=== PATIENT | female | born 1985 | race Caucasian/White ===

== ENCOUNTER → 2018-04-05 | Outpatient (CLI) | payer OTHER | LOC: FIMAGING 14:10 | PROVIDERS: ATTEND Advanced Practice Midwife | DX: O09.512 Supervision of elderly primigravida, second trimester (principal); O34.42 Maternal care for other abnormalities of cervix, second trimester; Z3A.19 19 weeks gestation of pregnancy ==

== ENCOUNTER → 2018-04-12 | Outpatient (CLI) | payer OTHER | LOC: FIMAGING 10:25 | PROVIDERS: ATTEND Advanced Practice Midwife | DX: O09.512 Supervision of elderly primigravida, second trimester (principal); Z3A.20 20 weeks gestation of pregnancy ==

== ENCOUNTER 2018-09-05 22:15 | Inpatient (IN) | payer OTHER ==
--- NOTE | 2018-09-05 22:54 | PDGENHP ---
History and Physical History and Physical: Care: [facility] HPI: Elayne Olivarez is a [id number] with IUP@ 41-0 weeks that presents to L&D with complaints of contractions since 1445. she denies any LOF, VB. She reports losing mucous plug today. She reports +FM. She states that pain with contractions has been increasing since 1900. EDC: 08/29/18 which is based on LMP which is known and consistent with Ultrasound at 9 weeks. Her is complicated by: AMA, Rh negative Review of Systems: Constitutional: Denies any fever, chills, or fatigue HEENT: denies any visual changes, difficulty swallowing, hearing loss Cardiovascular: Denies any chest pain, palpitations, leg swelling Respiratory: denies any cough, wheezing, or shortness of breathe GI: Denies any nausea, vomiting, diarrhea, constipation : denies any dysuria, urgency, frequency, vaginal bleeding Musculoskeletal: denies any muscle or bone pain Skin: denies any rashes Neuro: denies any headache, seizures, lightheadedness, dizziness, or loss of consciousness Psychiatric: denies any depression, anxiety, or SI/HI thoughts HISTORY: Previous OB history: G1 Past medical history: HSV type 1 Past surgical history: jaw surgery 1999 Social: Denies any alcohol, tobacco, or drug use. - joy ; lives in [place] Family history: Not relevant Medications: PNV Allergies (list reaction): NKDA LABS: Rh: A Negative ABS: Neg Rubella: Immune HbsAg: NR HIV: NR VDRL: NR 1hr: 101 GC: Neg Chlamydia: Neg Pap: Normal GBS: negative PHYSICAL EXAM: Constitutional: WN, A&Ox3 HEENT: normocephalic atraumatic, supple Skin: Warm, dry, intact Heart: RRR, no murmur Chest: CTA-B Abdomen: Soft, nontender, gravid SVE: 5/70/-1 Extremities: no edema, negative homans sign Neuro: grossly normal Psych: normal affect assessment: FHT baseline 140 +accels, no decels, moderate variability Contractions: toco q 6-7 Assessment: * 33yo with IUP @ 41-0wks * GBS Negative * Cat 1 FHR tracing * Rh Negative Plan: * Admit to L&D * hydrotherapy/pain management PRN * expectant management * reassess 2-4hr/PRN * anticipate Today's visit was approximately 30 min, of which >50% of visit 20 min, was spent face to face with pt on direct counseling/coordination of care.
[2018-09-05] MEDS ORDERED: AMMONIA AROMATIC 1 EACH AMP IH PRN (23:07)
[2018-09-05] MEDS ORDERED: OXYTOCIN/RINGERS LACTATE 1,000 ML IV PRN (23:07)
[2018-09-05] MEDS ORDERED: TERBUTALINE SULFATE 1 MG/ML VIAL IV PRN (23:07)
[2018-09-05] MEDS ORDERED: OLIVE OIL 118 ML BTL MISC PRN (23:07)
[2018-09-05] MEDS ORDERED: MISOPROSTOL 200 MCG TAB PO PRN (23:07)
[2018-09-05] MEDS ORDERED: LR 1,000 ML IV PRN (23:07)
[2018-09-05] MEDS ORDERED: EPSOM SALT 454 GM TP PRN (23:07)
[2018-09-05] MEDS ORDERED: LIDOCAINE 1% 300 MG/30 ML SDV SC PRN (23:07)
[2018-09-05] MEDS ORDERED: IBUPROFEN 600 MG TAB PO PRN (23:07)
[2018-09-05] MEDS ORDERED: AMMONIA AROMATIC 1 EACH AMP IH ONE (23:18)
[2018-09-05] MEDS ORDERED: LIDOCAINE 1% 300 MG/30 ML SDV ONE (23:18)
[2018-09-05] MEDS ORDERED: OLIVE OIL 118 ML BTL MISC ONE (23:18)
[2018-09-05] MEDS ORDERED: OXYTOCIN 10 UNIT/ML VIAL ONE (23:18)
[2018-09-05] MEDS ORDERED: TERBUTALINE SULFATE 1 MG/ML VIAL ONE (23:18)
[2018-09-05] MEDS ORDERED: MISOPROSTOL 200 MCG TAB ONE (23:19)
[2018-09-06] MEDS ORDERED: fentaNYL 2MCG/ML/BUP 0.1% RTU 100 ML BAG EP ONE (01:30)
[2018-09-06] MEDS ORDERED: BUPIVACAINE 0.25% 10 ML SDV ONE ×3 (01:31→02:24)
[2018-09-06 01:32] LABS: PLATELET COUNT 116 10^3/uL (150-400)
[2018-09-06] MEDS ORDERED: NALOXONE HCL 0.4 MG/ML INJ IVP PRN (02:02)
[2018-09-06] MEDS ORDERED: ONDANSETRON 4 MG/2 ML VIAL IVP PRN (02:02)
[2018-09-06] MEDS ORDERED: PHENYLEPHRINE HCL 100 MCG/ML SYR IVP PRN (02:02)
[2018-09-06] MEDS ORDERED: METOCLOPRAMIDE 10 MG/2 ML VIAL IVP PRN (02:02)
--- NOTE | 2018-09-06 02:04 | PREANESOB ---
Obstetric Pre-Anesthesia Info - General Info Proposed Procedure: SHELBY : 1 Para: 0 ANDREZ: 08/29/18 Gestational Age: 41 week(s) and 0 day(s) - Info Status: Full Term Monitors: External FHR Pattern: Reassuring - Labor Status Magnesium Sulfate in Use: No Indications for Labor Analgesia: Pain Control Labor Epidural: Proposed Anesthesia Allergies/Adverse Reactions: Allergy/AdvReac Type Severity Reaction Status Date / Time No Known Allergies Allergy Unverified 09/05/18 22:39 Visit Medications: Generic Name Dose Route Start Last Admin Trade Name Freq PRN Reason Stop Dose Admin Ammonia (Aromatic Spirit) 1 each 09/05/18 23:07 Ammonia Aromatic IH 09/15/18 23:06 ONCE PRN Fainting Calcium Carbonate 500 mg 09/05/18 23:35 Tums PO 03/04/19 23:34 TID PRN Indigestion Lactated Ringer's 1,000 mls @ 0 mls/hr 09/05/18 23:07 09/06/18 01:56 Lr IV 09/06/18 23:06 1,000 mls PRN PRN Administration SEE PROTOCOL CONDITIONS Protocol Per Protocol Oxytocin/Lactated Ringer's 1,000 mls @ 999 mls/hr 09/05/18 23:07 Pitocin 20 Units/Lr (Premix) IV PRN PRN Post bleeding Ibuprofen 600 mg 09/05/18 23:07 Motrin PO ONCE PRN post , pain Lidocaine HCl 300 mg 09/05/18 23:07 Lidocaine Hcl 1% SC 03/04/19 23:06 ONCE PRN episiotomy Magnesium Sulfate 454 gm 09/05/18 23:07 Epsom Salt TP 03/04/19 23:06 Q1H PRN perineal discomfort Misoprostol 800 - 1,000 mcg 09/05/18 23:07 Cytotec PO 03/04/19 23:06 ONCE PRN Vaginal Atony/Bleeding Draper Oil 118 ml 09/05/18 23:07 Sweet Oil MISC 03/04/19 23:06 ONCE PRN perineal massage Terbutaline Sulfate 0.25 mg 09/05/18 23:07 Brethine IV 03/04/19 23:06 ONCE PRN Tachysystole Discontinued Medications Generic Name Dose Route Start Last Admin Trade Name Freq PRN Reason Stop Dose Admin Ammonia (Aromatic Spirit) Confirm 09/05/18 23:18 Ammonia Aromatic Administered 09/05/18 23:19 Dose 1 each IH .STK-MED ONE Bupivacaine HCl Confirm 09/06/18 01:31 Sensorcaine 0.25% Sdv Administered 09/06/18 01:32 Dose 10 ml .ROUTE .STK-MED ONE Fentanyl/Bupivacaine HCl Confirm 09/06/18 01:30 Fentanyl/Bupivacaine/Ns 2 Mcg/Ml 0.1% (Premix Administered 09/06/18 01:31 Dose 100 ml EP .STK-MED ONE Lidocaine HCl Confirm 09/05/18 23:18 Lidocaine Hcl 1% Administered 09/05/18 23:19 Dose 300 mg .ROUTE .STK-MED ONE Misoprostol Confirm 09/05/18 23:19 Cytotec Administered 09/05/18 23:20 Dose 1,000 mcg .ROUTE .STK-MED ONE Draper Oil Confirm 09/05/18 23:18 Sweet Oil Administered 09/05/18 23:19 Dose 118 ml MISC .STK-MED ONE Oxytocin Confirm 09/05/18 23:18 Pitocin Administered 09/05/18 23:19 Dose 40 unit .ROUTE .STK-MED ONE Terbutaline Sulfate Confirm 09/05/18 23:18 Brethine Administered 09/05/18 23:19 Dose 1 mg .ROUTE .STK-MED ONE - Anesthesia History Response to Local Anesthetics: Not Applicable Anesthesia & Operative History: No Prior Problems Family Anesthesia History: Not Applicable - Vital Signs Height/Weight (Nursing): Height 170.18 cm Weight 66.678 kg - Focused Exam Neck exam: FROM Mallampati Score: Class 1 Mouth exam: normal dental/mouth exam Pulmonary: no respiratory distress Cardiovascular: regular rate and rhythym Labs: 09/06/18 01:15 - Plan Consent Signed and on Chart: Yes Patient/Guardian Understands and Agrees to Plan: Yes Urgent/Emergent Case: Sheila jolley completed preop but documented later for safe timely pt care
[2018-09-06] MEDS ORDERED: fentaNYL 100 MCG/2 ML INJ ONE ×2 (02:05→02:25)
--- NOTE | 2018-09-06 02:09 | POSTANESTH ---
Post Anesthetic Evaluation Cardiovascular Status: Normal, Stable Respiratory Status: Normal, Stable Level of Consciousness/Mental Status: Can Participate in Eval Pain Control: Adequate, Prn Tx Ordered Nausea/Vomiting Control: Adequate, Prn Tx Ordered Complications Possibly Related to Anesthesia: None Noted
[2018-09-06] MEDS ORDERED: LR 500 ML IV SCH (02:30)
[2018-09-06] MEDS ORDERED: fentaNYL 2MCG/ML/BUP 0.1% RTU 100 ML EP SCH (02:30)
[2018-09-06] MEDS: CALCIUM CARBONATE 500 MG CHEWABLE TAB PO PRN ×2 (03:18→07:12)
--- NOTE | 2018-09-06 04:14 | OBPROG ---
Labor Progress Note Assessment/Plan: Assessment: 33yo with IUP@ 41-0wks Active labor GBS Negative SHELBY in place cat 1 FHR tracing Plan: expectant management if no cervical change in 2 hours will AROM at that time reassess 2hr/PRN anticipate 09/06/18 04:11 Objective: 09/06/18 01:15 Patient ABO/Rh A NEGATIVE 09/06/18 01:15 - SVE Dilation (cm): 8 Effacement (%): 80 Station: -1 Membranes: Intact - Contraction Pattern Assessment Current Contraction Pattern: Regular - FHR Assessment Vilchis FHR (bpm): 135 FHR Pattern Variability: Moderate FHR Category: 1 Oxytocin Orders Assessment - Pre-Induction/Augmentation Assessment Gestational Age: 41 week(s) and 0 day(s) ICD10 Worksheet Patient Problems: Problems Problem Status Onset Normal labor and delivery Acute - ICD10 Problem Qualifiers (1) Normal labor and delivery
[2018-09-06] MEDS ORDERED: FAMOTIDINE 20 MG/NACL 50 ML IV ONE (08:00)
--- NOTE | 2018-09-06 08:32 | OBPROG ---
Labor Progress Note Assessment/Plan: Assessment: 33 y/o P0 at 41.1 weeks ega Comfortable with epidural Complete and pushing Cntx q3 min Cat 1 EFM Plan: Anticipate 09/06/18 08:31 09/06/18 08:32 Subjective/Intrapartum Course: 09/06/18 08:30 Complete and pushing well with coaching -good descent Objective: 09/06/18 01:15 Patient ABO/Rh A NEGATIVE 09/06/18 01:15 - SVE Dilation (cm): 10 Effacement (%): 100 Station: +2 Membranes: Intact Amniotic Fluid Color: Meconium Stained Dilation Complete Date: 09/06/18 Dilation Complete Time: 07:25 - Contraction Pattern Assessment Current Contraction Pattern: Regular Oxytocin Orders Assessment - Pre-Induction/Augmentation Assessment Gestational Age: 41 week(s) and 0 day(s) ICD10 Worksheet Patient Problems: Problems Problem Status Onset Normal labor and delivery Acute
[2018-09-06] MEDS ORDERED: HYDROCODONE/APAP 5/325 TAB PO PRN (11:27)
[2018-09-06] MEDS ORDERED: HYDROCORTISONE 0.5% CREAM TP PRN (11:27)
[2018-09-06] MEDS ORDERED: SIMETHICONE 80 MG TAB CHEW PO PRN (11:27)
--- NOTE | 2018-09-06 11:27 | OBDEL ---
Info Type: Vaginal Presentation at Delivery: Vertex L&D Analgesia/Anesthesia Type: Epidural GBS+: No Intrapartum Medications: Generic Name Dose Route Start Last Admin Trade Name Freq PRN Reason Stop Dose Admin Calcium Carbonate 500 mg 09/05/18 23:35 09/06/18 07:12 Tums PO 03/04/19 23:34 500 mg TID PRN Administration Indigestion Lactated Ringer's 1,000 mls @ 0 mls/hr 09/05/18 23:07 09/06/18 01:56 Lr IV 09/06/18 23:06 1,000 mls PRN PRN Administration SEE PROTOCOL CONDITIONS Protocol Per Protocol Lactated Ringer's 500 mls @ 0 mls/hr 09/06/18 02:30 09/06/18 03:19 Lr IV 03/05/19 02:29 500 mls CONT RABIA Administration As Directed Ondansetron HCl 4 mg 09/06/18 02:02 09/06/18 03:18 Zofran IVP 09/07/18 02:01 4 mg Q4HRS PRN Administration Nausea/Vomiting, Can't Take PO Discontinued Medications Generic Name Dose Route Start Last Admin Trade Name Freq PRN Reason Stop Dose Admin Famotidine/Sodium Chloride 50 mls @ 200 mls/hr 09/06/18 08:00 09/06/18 07:58 Pepcid 20 Mg (Premix) IV 09/06/18 08:14 50 mls ONCE ONE Administration - Hospital Course Intrapartum: 09/06/18 08:30 Complete and pushing well with coaching -good descent Indications for Delivery: Spontaneous Labor Vaginal Delivery - Delivery Provider Delivery Physician/CNM: Anjana Adler - Labor and Delivery Onset of Contractions Date: 09/05/18 Onset of Contractions Time: 14:40 Onset of Contractions Type: Spontaneous Rupture of Membranes Date: 09/05/18 Rupture of Membranes Time: 04:30 Rupture of Membranes Type: Spontaneous Amniotic Fluid Color: Meconium Stained, Thick Meconium Dilation Complete Date: 09/06/18 Dilation Complete Time: 07:25 Placenta Delivery Date: 09/06/18 Placenta Delivery Time: 11:06 Total Hours of Labor: 20 Laceration: 1st Degree Repair: 3-0, Vicryl Vaginal Sponge Count Correct: Yes Vaginal Needle Count Correct: Yes Vaginal Sweep Performed: No EBL: 150 Delivery Events: None Data ANDREZ: 08/29/18 Gestational Age: 41 week(s) and 1 day(s) Vilchis Delivery Date: 09/06/18 Delivery Time: 11:01 Sex of Infant: Male Weight (gm): 3375 kg Score (1 Min): 9 Score (5 Min): 9 ICD10 Worksheet Patient Problems: Problems Problem Status Onset Normal labor and delivery Acute Vaginal delivery Acute - ICD10 Problem Qualifiers (1) Vaginal delivery
[2018-09-06] MEDS: ACETAMINOPHEN 325 MG TAB PO PRN ×2 (17:01→22:59)
[2018-09-06] MEDS: IBUPROFEN 600 MG TAB PO PRN ×2 (17:02→22:59)
[2018-09-06] MEDS: DOCUSATE SODIUM 100 MG CAP PO PRN (22:58)
[2018-09-07] MEDS: ACETAMINOPHEN 325 MG TAB PO PRN ×3 (04:57→18:40)
[2018-09-07] MEDS: IBUPROFEN 600 MG TAB PO PRN ×3 (04:57→18:40)
--- NOTE | 2018-09-07 09:04 | PDPAINCON ---
Pain Management Consultation Patient referred by : Mansi - Subjective Pain is: low, well controlled Side effects include: No itchiness, No nausea Activity: able to ambulate - Objective Technique: spinal opioid (IT fentanyl for CSE) Sensory and motor exam: block has resolved, no apparent ill effects Vital signs: stable - Assessment/Plan Assessment/Plan: pain well-controlled, continue current mgmt (s/p combined spinal epidural for labor. patient received IT fentanyl 25mcg, tolerated will without adverse effects. No complaints at this time.)
--- NOTE | 2018-09-07 10:32 | OBPP ---
Progress Note Assessment/Plan: Assessment: 1. PP day 1 2. breast feeding difficulty 3. Plan: 1. support 2. d/c home tomorrow 09/07/18 10:30 Subjective/ Course: 09/07/18 10:31 feeling well, no c/o. pain management effective. working with on baby 's latch. Objective: 09/06/18 01:15 Patient ABO/Rh A NEGATIVE 09/06/18 01:15 Temp Pulse Resp BP Pulse Ox 36.4 C 74 16 107/70 96 09/07/18 08:35 09/07/18 08:35 09/07/18 08:35 09/07/18 08:35 09/07/18 08:35 VSS Uterine Position/Fundal Height: At Umbilicus Uterine Tone: Firm
[2018-09-07] MEDS: DOCUSATE SODIUM 100 MG CAP PO PRN (11:59)
[2018-09-08] MEDS: ACETAMINOPHEN 325 MG TAB PO PRN ×2 (03:54→10:08)
--- NOTE | 2018-09-08 09:53 | OBGCSDC ---
General Delivery Information - General Info : 1 Para: 1 Abortions: 0 Type: Vaginal L&D Analgesia/Anesthesia Type: Epidural Admission Date: 09/05/18 Labs: Patient ABO/Rh A NEGATIVE 09/06/18 01:15 Hct 41.8 % (38.0-47.0) 09/06/18 01:15 - Hospital Course Intrapartum: 09/06/18 08:30 Complete and pushing well with coaching -good descent : 09/07/18 10:31 feeling well, no c/o. pain management effective. working with on baby 's latch. 09/08/18 10:12 No c/o. Ready to go home. Baby is nursing well, breast mildly engorged. APNO to go home. Vaginal - Delivery Provider Delivery Physician/CNM: Anjana Adler - Diagnosis Labor: Spontaneous Rupture of Membranes Type: Spontaneous Amniotic Fluid Color: Meconium Stained, Thick Meconium Laceration: 1st Degree Repair: 3-0, Vicryl Delivery Events: None - Delivery EBL: 150 Data ANDREZ: 08/29/18 Gestational Age: 41 week(s) and 3 day(s) Vilchis Delivery Date: 09/06/18 Delivery Time: 11:01 Sex of Infant: Male Weight (gm): 3375 kg Score (1 Min): 9 Score (5 Min): 9 Discharge Information - Discharge Information Condition: Good Instruction/Follow Up: Two Weeks
[2018-09-08] MEDS: DOCUSATE SODIUM 100 MG CAP PO PRN (10:08)
[2018-09-08] MEDS: IBUPROFEN 600 MG TAB PO PRN (10:08)
[2018-09-08 10:21] VITALS: BP 111/79
== END 2018-09-08 12:40 | disposition home or self-care (01) | DRG 807 ==
LOC: FLD 22:15 → OBSVTOIN 23:10 → FOB 09-06 13:40
PROVIDERS: ADMIT Advanced Practice Midwife; ATTEND Advanced Practice Midwife
DX: O70.0 First degree perineal laceration during delivery (principal); O77.0 Labor and delivery complicated by meconium in amniotic fluid; O26.893 Other specified pregnancy related conditions, third trimester; Z67.91 Unspecified blood type, Rh negative; Z3A.40 40 weeks gestation of pregnancy; Z37.0 Single live birth
CPT/HCPCS: J2405; J2590; J3010; J3105